=== PATIENT | female | born 1935 | race Two or more races ===

== ENCOUNTER 2018-08-21 10:00 | Emergency (ER) | payer OTHER, MEDICAID ==
[~2018-08-21] VITALS: Ht 162.6 cm; Wt 50.0 kg
[2018-08-21] MEDS ORDERED: KETOROLAC 30MG/ML VIAL IV STA (10:42)
[2018-08-21 11:00] LABS: BASOPHILS % 0.3 % (0.0-2.0); HEMATOCRIT. 29.3 % (36.0-48.0); HEMOGLOBIN. 10.1 g/dL (12.0-16.0); LYMPHOCYTES % 11.2 % (20.0-50.0); MEAN CORPUSCULAR HEMOGLOBIN 28.9 pg (28.0-32.0); MEAN CORPUSCULAR VOLUME 83.6 fL (81.0-99.0); MEAN PLATELET VOLUME 7.1 fl (7.4-10.4); MONOCYTES % 11.6 % (2.0-8.0); NEUTROPHILS % 76.9 % (40.0-76.0); PLATELET 254 x1000/uL (130-400); RED BLOOD CELL COUNT 3.51 mill/uL (4.2-5.4); RED CELL DISTRIBUTION WIDTH 14.2 % (11.6-14.6)
[2018-08-21 11:03] LABS: CHLORIDE 89 mEq/L (98-107)
[2018-08-21 11:06] LABS: PROTHROMBIN TIME 10.4 sec (9.1-11.1)
[2018-08-21] MEDS ORDERED: DEXTROSE 50% WATER 50ML SYRINGE IV PRN ×2 (13:30→16:30)
[2018-08-21] MEDS ORDERED: MORPHINE SULFATE 2 MG/ML CPJ (NOT FOR IM USE) IV PRN ×2 (13:30→16:30)
[2018-08-21] MEDS ORDERED: SODIUM CHLORIDE 0.9% 1,000 ML IV SCH (13:30)
[2018-08-21] MEDS ORDERED: POTASSIUM CHLORIDE 20MEQ TABLET SR PO ONE ×2 (13:30)
[2018-08-21] MEDS ORDERED: INSULIN LISPRO 100 UNITS/ML SUBCUT SCH (14:30)
[2018-08-21 15:44] VITALS: BP 174/84
[2018-08-21] MEDS ORDERED: BLOOD SUGAR DIAGNOSTIC STRIP TEST SCH ×2 (17:00)
== END 2018-08-21 16:17 | disposition short-term general hospital (02) ==
LOC: ER 10:00 → EDBEDREQTM 12:46 → EDBEDREQ 12:46 → ER 16:17 → CANBEDREQ 22:12
DX: S72.141A Displaced intertrochanteric fracture of right femur, initial encounter for closed fracture (principal); R79.89 Other specified abnormal findings of blood chemistry; E87.1 Hypo-osmolality and hyponatremia; E87.6 Hypokalemia; D64.9 Anemia, unspecified; E11.9 Type 2 diabetes mellitus without complications; I10 Essential (primary) hypertension; Z87.440 Personal history of urinary (tract) infections; W01.0XXA Fall on same level from slipping, tripping and stumbling without subsequent striking against object, initial encounter; Y93.89 Activity, other specified; Y92.89 Other specified places as the place of occurrence of the external cause; Y99.8 Other external cause status
CPT/HCPCS: 36415; 71045; 73502; 80053; 82962; 85025; 85610; 93970; 99285; P9612